=== PATIENT | male | born 1990 ===

== ENCOUNTER 2024-03-11 12:42 | Inpatient (IN) | payer OTHER ==
[2024-03-12 20:54] VITALS: BP 108/69; TEMP 98.3; O2SAT 97
[2024-03-12] MEDS ORDERED: POLY17PO4 GT (21:13)
[2024-03-12] MEDS ORDERED: FAMO20TA8 GT (21:13)
[2024-03-12] MEDS ORDERED: LITH300C2 GT (21:13)
[2024-03-12] MEDS ORDERED: ENOX40DI SQ (21:13)
[2024-03-12] MEDS ORDERED: TRAZ-182 GT (21:13)
[2024-03-12] MEDS ORDERED: CLON0.5T4 GT (21:13)
[2024-03-12] MEDS ORDERED: SENN8.6T19 GT (21:13)
[2024-03-12] MEDS ORDERED: BISA10SU61 RC (21:13)
[2024-03-12] MEDS ORDERED: DOCU50LI GT (21:13)
[2024-03-12] MEDS ORDERED: REMEDY ESSENTIAL ZINC PASTE 113 GM TOP PRN (22:45)
[2024-03-12] MEDS: TRAZODONE 50 MG TABLET GT SCH (23:53)
[2024-03-12] MEDS: LITHIUM CARBONATE 300 MG CAPSULE GT SCH (23:53)
[2024-03-12] MEDS: CLONAZEPAM 0.5 MG TABLET GT SCH (23:53)
[2024-03-13 06:02] VITALS: BP 102/67; TEMP 97.9; O2SAT 98
[2024-03-13] MEDS: ENOXAPARIN SODIUM 40 MG/0.4 ML DISP.SYRIN SQ SCH (10:55)
[2024-03-13] MEDS: SENNOSIDES 1 TABLET GT SCH (10:57)
[2024-03-13] MEDS: DOCUSATE SODIUM 100 MG/10 ML LIQUID UDC GT SCH (10:57)
[2024-03-13] MEDS: MIRALAX 17 GM POWD.PACK GT SCH (10:57)
[2024-03-13] MEDS: BISACODYL 10 MG SUPP.RECT RC SCH (10:58)
[2024-03-13] MEDS: FAMOTIDINE 20 MG TABLET GT SCH (11:00)
[2024-03-13 15:43] VITALS: BP 107/68; TEMP 98.5; O2SAT 96
[2024-03-13] MEDS ORDERED: BISACODYL 10 MG SUPP.RECT RC PRN (15:45)
[2024-03-13 20:00] VITALS: BP 106/70; TEMP 98.1; O2SAT 98
[2024-03-13] MEDS: TRAZODONE 50 MG TABLET GT SCH (20:37)
[2024-03-14 06:37] VITALS: BP 108/68; TEMP 98.4; O2SAT 97
[2024-03-14 06:42] LABS: BASOPHILS % (AUTO) 0.5 % (0.0-2.0); EOSINOPHILS # (AUTO) 0.2 K/uL (0.0-0.7); EOSINOPHILS % (AUTO) 2.7 % (0.0-7.0); HEMOGLOBIN 13.5 g/dL (12.5-16.3); LYMPHOCYTES # (AUTO) 1.2 K/uL (0.8-4.8); MEAN CORPUSCULAR HGB CONC 34 g/dL (32.5-36.3); MEAN CORPUSCULAR VOLUME 86.2 fL (73.0-96.2); MONOCYTES # (AUTO) 0.6 K/uL (0.1-1.30); MONOCYTES % (AUTO) 8.8 % (0.0-11.0); NEUTROPHILS # (AUTO) 5.1 K/uL (1.8-8.9); PLATELET COUNT (AUTO) 238 K/uL (152-348); RED BLOOD CELL COUNT(AUTO) 4.64 MIL/uL (4.06-5.63); RED CELL DISTRIBUTION WIDTH 14.5 % (12.1-16.2); WHITE BLOOD COUNT (AUTO) 7.2 K/uL (3.6-10.2)
[2024-03-14 07:19] LABS: DIFFERENTIAL COMMENT 1
[2024-03-14 09:28] LABS: ALBUMIN 3.5 g/dL (3.4-5.0); BILIRUBIN,TOTAL 0.7 mg/dL (0.2-1.0); CALCIUM 9.4 mg/dL (8.5-10.1); CREATININE 0.7 mg/dL (0.6-1.3); MAGNESIUM 2.4 mg/dL (1.8-2.4); PHOSPHOROUS 5.3 mg/dL (2.5-4.9); POTASSIUM 4.2 mmol/L (3.5-5.1); TOTAL PROTEIN, SERUM 7.4 g/dL (6.4-8.2)
[2024-03-14 15:38] VITALS: BP 107/70; TEMP 97.6; O2SAT 96
[2024-03-14 20:40] VITALS: BP 102/67; TEMP 98.3; O2SAT 95
[2024-03-15 06:01] VITALS: BP 102/61; TEMP 98.2; O2SAT 98
[2024-03-15] MEDS ORDERED: SENNOSIDES 1 TABLET GT PRN (09:00)
[2024-03-15] MEDS: ACETAMINOPHEN 650 MG/20.3 ML LIQUID UDC GT PRN (11:43)
[2024-03-15] MEDS ORDERED: ONDANSETRON HCL 4 MG/5 ML UDC ORAL SOL GT PRN (12:30)
[2024-03-15] MEDS: ONDANSETRON ODT 4 MG TAB.RAPDIS GT PRN (12:51)
[2024-03-15] MEDS: ENSURE WITH FIBER 237 ML LIQUID (CHOCOLATE) PO SCH (14:24)
[2024-03-15 15:07] VITALS: BP 104/79; TEMP 98; O2SAT 97
[2024-03-15 19:53] VITALS: BP 106/76; TEMP 98.4; O2SAT 98
[2024-03-16 05:45] VITALS: BP 101/65; TEMP 98.4; O2SAT 95
[2024-03-16 07:53] LABS: THYROID STIMULATING HORMONE 2.254 mIU/mL (0.358-3.740)
[2024-03-16 08:09] LABS: ALBUMIN 3.4 g/dL (3.4-5.0); BILIRUBIN,TOTAL 0.6 mg/dL (0.2-1.0); CALCIUM 9.1 mg/dL (8.5-10.1); CREATININE 0.8 mg/dL (0.6-1.3); PHOSPHOROUS 3.7 mg/dL (2.5-4.9); TOTAL PROTEIN, SERUM 7.5 g/dL (6.4-8.2)
[2024-03-16 16:00] VITALS: BP 107/73; TEMP 98.1; O2SAT 96
[2024-03-16 19:45] VITALS: BP 108/68; TEMP 98.1; O2SAT 96
[2024-03-17 05:48] VITALS: BP 105/63; TEMP 98.4; O2SAT 100
[2024-03-17 12:00] VITALS: BP 135/80; TEMP 98; O2SAT 96
[2024-03-17 16:00] VITALS: BP 109/76; TEMP 97.5; O2SAT 95
[2024-03-17 20:00] VITALS: BP 102/65; TEMP 98.2; O2SAT 96
[2024-03-18 04:00] VITALS: BP 113/70; TEMP 98; O2SAT 96
[2024-03-18 12:00] VITALS: BP 126/78; TEMP 97.8; O2SAT 97
[2024-03-18 13:32] LABS: BASOPHILS # (AUTO) 0.2 K/UL (0.0-0.2); BASOPHILS % (AUTO) 1.7 % (0.0-2.0); EOSINOPHILS # (AUTO) 0.2 K/uL (0.0-0.7); EOSINOPHILS % (AUTO) 1.9 % (0.0-7.0); HEMATOCRIT 43.2 % (36.7-47.1); HEMOGLOBIN 13.9 g/dL (12.5-16.3); LYMPHOCYTES # (AUTO) 1.3 K/uL (0.8-4.8); LYMPHOCYTES % (AUTO) 11.5 % (20.5-51.5); MEAN CORPUSCULAR HEMOGLOBIN 28.1 uug (23.8-33.4); MEAN CORPUSCULAR HGB CONC 32 g/dL (32.5-36.3); MEAN CORPUSCULAR VOLUME 87.1 fL (73.0-96.2); MONOCYTES # (AUTO) 0.7 K/uL (0.1-1.30); MONOCYTES % (AUTO) 5.7 % (0.0-11.0); NEUTROPHILS # (AUTO) 9.2 K/uL (1.8-8.9); NEUTROPHILS % (AUTO) 79.2 % (38.5-71.5); PLATELET COUNT (AUTO) 313 K/uL (152-348); RED BLOOD CELL COUNT(AUTO) 4.96 MIL/uL (4.06-5.63); RED CELL DISTRIBUTION WIDTH 14.5 % (12.1-16.2); WHITE BLOOD COUNT (AUTO) 11.7 K/uL (3.6-10.2)
[2024-03-18 13:53] LABS: ALANINE AMINOTRANSFERASE 271 U/L (16-63); ALBUMIN 3.8 g/dL (3.4-5.0); ALKALINE PHOSPHATASE 119 U/L (50-136); ASPARTATE AMINOTRANSFERASE 61 U/L (15-37); BILIRUBIN,TOTAL 0.9 mg/dL (0.2-1.0); CALCIUM 9.4 mg/dL (8.5-10.1); CARBON DIOXIDE 25 mmol/L (21-32); CHLORIDE 100 mmol/L (98-107); CREATININE 0.6 mg/dL (0.6-1.3); GLUCOSE 135 mg/dL (74-106); POTASSIUM 3.9 mmol/L (3.5-5.1); SODIUM SERUM 136 mmol/L (136-145); TOTAL PROTEIN, SERUM 8.3 g/dL (6.4-8.2); UREA NITROGEN, BLOOD 17 mg/dL (7-18)
[2024-03-18 14:00] LABS: DIFFERENTIAL COMMENT 1
[2024-03-18 16:00] VITALS: BP 103/70; TEMP 98.8; O2SAT 98
[2024-03-18 16:23] LABS: EOSINOPHILS % (MANUAL) 2 % (0-8); LYMPHOCYTES % (MANUAL) 11 % (20-40); MONOCYTES % (MANUAL) 4 % (2-10); NEUTROPHILS % (MANUAL) 83 % (42-75); PLATELET ESTIMATE ADEQUATE
[2024-03-18 16:24] LABS: ANISOCYTOSIS 1+
[2024-03-18 16:25] LABS: TEAR DROP CELLS 1+
[2024-03-18 20:00] VITALS: BP 112/67; TEMP 98.3; O2SAT 97
[2024-03-19] MEDS: HYDROCODONE/APAP 5-325MG TABLET GT PRN (04:13)
[2024-03-19 07:00] VITALS: BP 109/63; TEMP 98.8; O2SAT 98
[2024-03-19 16:06] VITALS: BP 111/75; TEMP 98.5; O2SAT 99
[2024-03-19 20:48] VITALS: BP 102/66; TEMP 98.3; O2SAT 99
[2024-03-20 06:16] VITALS: BP 103/61; TEMP 98.2; O2SAT 96
[2024-03-20 16:08] VITALS: BP 108/73; TEMP 97.8; O2SAT 99
[2024-03-20 20:13] VITALS: BP 108/65; TEMP 98.8; O2SAT 96
[2024-03-21 05:45] VITALS: BP 101/66; TEMP 98.7; O2SAT 98
[2024-03-21 12:00] VITALS: BP 108/58; TEMP 97.8; O2SAT 97
[2024-03-21 15:44] VITALS: BP 117/73; TEMP 97.8; O2SAT 97
[2024-03-21 20:00] VITALS: BP 112/77; TEMP 98.3; O2SAT 97
[2024-03-22 06:34] VITALS: BP 99/68; TEMP 97.7; O2SAT 98
[2024-03-22 15:30] VITALS: BP 112/76; TEMP 97.4; O2SAT 98
[2024-03-22 20:00] VITALS: BP 110/75; TEMP 97.5; O2SAT 97
[2024-03-23] MEDS: LITHIUM CARBONATE 300 MG CAPSULE GT SCH (12:32)
[2024-03-23 16:45] VITALS: BP 109/70; TEMP 98.2; O2SAT 95
[2024-03-23 23:20] VITALS: BP 108/63; TEMP 98.6; O2SAT 94
[2024-03-24 06:00] VITALS: BP 100/69; TEMP 97.8; O2SAT 97
[2024-03-24 08:00] VITALS: BP 113/77; TEMP 95.5; O2SAT 97
[2024-03-24 08:35] LABS: ALBUMIN 3.4 g/dL (3.4-5.0); BILIRUBIN,DIRECT 0.2 mg/dL (0.0-0.2); BILIRUBIN,TOTAL 0.5 mg/dL (0.2-1.0); TOTAL PROTEIN, SERUM 7.4 g/dL (6.4-8.2)
[2024-03-24 11:46] VITALS: BP 110/38; TEMP 98.2; O2SAT 97
[2024-03-24 15:48] VITALS: BP 114/82; TEMP 97.7; O2SAT 98
[2024-03-24 20:25] VITALS: BP 107/75; TEMP 97.5; O2SAT 97
[2024-03-25 06:20] VITALS: BP 108/70; TEMP 97.4; O2SAT 99
[2024-03-25 16:02] VITALS: BP 113/75; TEMP 97.8; O2SAT 99
[2024-03-25 20:42] VITALS: BP 109/69; TEMP 98.2; O2SAT 97
[2024-03-26 06:00] VITALS: BP 99/67; TEMP 98.2; O2SAT 95
[2024-03-26 12:00] VITALS: BP 110/70; TEMP 97.6; O2SAT 96
[2024-03-26 15:35] VITALS: BP 112/71; TEMP 96; O2SAT 86
[2024-03-26 22:00] VITALS: BP 124/80; TEMP 97.8; O2SAT 97
[2024-03-27 06:00] VITALS: BP 124/66; TEMP 97; O2SAT 97
[2024-03-27 08:00] VITALS: BP 116/66; TEMP 97.5; O2SAT 98
== END 2024-03-27 16:45 | disposition home or self-care (01) | DRG 560 ==
PROVIDERS: ADMIT Physical Medicine & Rehabilitation Pain Medicine; ATTEND Physical Medicine & Rehabilitation Pain Medicine
DX: S32.89XD Fracture of other parts of pelvis, subsequent encounter for fracture with routine healing (principal); F31.30 Bipolar disorder, current episode depressed, mild or moderate severity, unspecified; F31.9 Bipolar disorder, unspecified; Z53.20 Procedure and treatment not carried out because of patient's decision for unspecified reasons; Z56.0 Unemployment, unspecified; Z88.8 Allergy status to other drugs, medicaments and biological substances; Z93.1 Gastrostomy status; Z86.718 Personal history of other venous thrombosis and embolism
CPT/HCPCS: 36415; 70030-TC; 82652; 83735; 84100; 84443; 85025; 97535-GO-CO; A4663; J1650; Q0162